=== PATIENT | male | born 1985 | race Caucasian/White ===

== ENCOUNTER 2022-03-17 22:33 | Emergency (ER) | payer OTHER ==
[2022-03-17 22:52] VITALS: BP 134/79; PULSE 80; RESP 18; TEMP 98.3; BMI 25.4
[2022-03-18] MEDS ORDERED: LACTATED RINGERS SOLUTION 1000 ML INFUS.BAG IV ONE (00:32)
[2022-03-18 00:50] LABS: BASO % 0.7 % (0-2.0); EOS % 1.3 % (0-4.5); HEMATOCRIT 44.6 % (35.4-49); HEMOGLOBIN 15.3 GM/dL (11.7-16.9); MCH 29.8 pg (25.7-33.7); MCHC 34.3 g/dl (32.0-35.9); MEAN PLT VOLUME 8.4 fl (7.5-11.1); MONO % 7.6 % (3.8-10.2); NEUT % 50.4 % (42.8-82.8); PLATELET COUNT 328 10^3/uL (134-434); RBC 5.13 M/mm3 (4.00-5.60); RDW 13.7 % (11.9-15.9); WHITE BLOOD COUNT 8.6 K/mm3 (4.0-10.0)
[2022-03-18 00:53] LABS: URINE APPEARANCE CLEAR; URINE BILIRUBIN NEGATIVE (NEGATIVE); URINE COLOR YELLOW; URINE GLUCOSE (UA) NEGATIVE (NEGATIVE); URINE KETONE TRACE (NEGATIVE); URINE LEUK ESTERASE NEGATIVE (NEGATIVE); URINE NITRITE NEGATIVE (NEGATIVE); URINE PROTEIN NEGATIVE (NEGATIVE); URINE UROBILINOGEN 0.2 mg/dL (0.2-1.0)
[2022-03-18 02:33] LABS: ALBUMIN 4.4 g/dl (3.4-5.0); BILIRUBIN,TOTAL 0.4 mg/dL (0.2-1); BLOOD UREA NITROGEN 23.6 mg/dL (7-18); CALCIUM 9.2 mg/dL (8.5-10.1); CREATININE 1.2 mg/dL (0.55-1.3); TOT PROT 7.3 g/dl (6.4-8.2)
[2022-03-18] MEDS ORDERED: POTASSIUM CHLORIDE TABS 20 MEQ TABLET.ER (FP) PO ONE ×2 (02:37→02:44)
== END 2022-03-18 03:05 | disposition home or self-care (01) ==
LOC: JER 22:33
DX: R42 Dizziness and giddiness (principal)
CPT/HCPCS: 36415; 80053; 81003; 82550; 82553; 85025; 87086; 93005; 93010; 99284-25

== ENCOUNTER 2022-06-10 09:43 | Emergency (ER) | payer OTHER ==
[2022-06-10 09:52] VITALS: BP 113/69; PULSE 64; RESP 20; TEMP 97.8; BMI 24.6
[2022-06-10] MEDS ORDERED: KETOROLAC TROMETHAMINE 30 MG/1 ML VIAL IM ONE (10:56)
[2022-06-10] MEDS ORDERED: KETOROLAC TROMETHAMINE 30 MG/1 ML VIAL ONE (10:57)
== END 2022-06-10 11:06 | disposition home or self-care (01) ==
LOC: JERFT 09:43
PROC: 3E0233Z Introduction of Anti-inflammatory into Muscle, Percutaneous Approach (ICD-10-PCS; principal; 2022-06-10)
DX: S00.511A Abrasion of lip, initial encounter (principal); R22.0 Localized swelling, mass and lump, head; W26.8XXA Contact with other sharp object(s), not elsewhere classified, initial encounter
CPT/HCPCS: 99284-25

== ENCOUNTER 2022-09-08 07:44 | Emergency (ER) | payer OTHER ==
[2022-09-08 08:00] VITALS: BP 122/69; PULSE 64; RESP 16; TEMP 98.1; BMI 24.3
== END 2022-09-08 08:53 | disposition home or self-care (01) ==
LOC: JER 07:44
DX: R09.81 Nasal congestion (principal); R19.7 Diarrhea, unspecified; Z20.822 Contact with and (suspected) exposure to COVID-19
CPT/HCPCS: 0241U-QW; 99283-25

== ENCOUNTER 2023-01-23 09:22 | Emergency (ER) | payer OTHER ==
[2023-01-23 09:27] VITALS: BP 140/85; PULSE 72; RESP 18; TEMP 97.7; BMI 25.4
[2023-01-23] MEDS ORDERED: TETRACAINE 0.5% OPHTH SOLN 2 ML BOTTLE ONE (10:14)
[2023-01-23] MEDS ORDERED: FLUORESCEIN NA 1 EA STRIP ONE (10:14)
== END 2023-01-23 10:40 | disposition home or self-care (01) ==
LOC: JERFT 09:22
DX: S05.01XA Injury of conjunctiva and corneal abrasion without foreign body, right eye, initial encounter (principal); X58.XXXA Exposure to other specified factors, initial encounter
CPT/HCPCS: 99283-25

== ENCOUNTER 2023-04-01 07:52 | Emergency (ER) | payer OTHER ==
[2023-04-01 08:00] VITALS: BP 144/83; PULSE 79; RESP 16; TEMP 97.5; BMI 25.2
[2023-04-01 10:34] LABS: THROAT:GRP A STREP NOT DETECTED (NOTDETECTED)
== END 2023-04-01 10:58 | disposition home or self-care (01) ==
LOC: JER 07:52 → JERFT 07:52
DX: J02.9 Acute pharyngitis, unspecified (principal); R09.81 Nasal congestion; R09.89 Other specified symptoms and signs involving the circulatory and respiratory systems; R05.9 Cough, unspecified; H92.03 Otalgia, bilateral; J06.9 Acute upper respiratory infection, unspecified; Z20.822 Contact with and (suspected) exposure to COVID-19
CPT/HCPCS: 0241U-QW; 87651; 99283-25

== ENCOUNTER 2025-03-20 19:19 | Emergency (ER) | payer OTHER ==
[2025-03-20 19:33] VITALS: BP 121/72; PULSE 66; RESP 20; TEMP 98.4; BMI 27.1
[2025-03-20] MEDS ORDERED: ACETAMINOPHEN 500 MG TABLET (FP) ONE (20:00)
[2025-03-20] MEDS ORDERED: IBUPROFEN 400 MG TABLET (FP) PO ONE (20:00)
[2025-03-20] MEDS: IBUPROFEN 400 MG TABLET (FP) PO ONE (20:14)
[2025-03-20] MEDS: ACETAMINOPHEN 500 MG TABLET (FP) PO ONE (20:14)
== END 2025-03-20 20:19 | disposition home or self-care (01) ==
LOC: JER 19:19
DX: R10.12 Left upper quadrant pain (principal); R10.32 Left lower quadrant pain; V47.5XXA Car driver injured in collision with fixed or stationary object in traffic accident, initial encounter; Y92.524 Gas station as the place of occurrence of the external cause
CPT/HCPCS: 99283-25